=== PATIENT | male | born 1975 | race Caucasian/White ===

== ENCOUNTER 2018-01-10 09:25 | Day surgery (SDC) | payer SELFPAY ==
[~2018-01-10] VITALS: Ht 175.3 cm; Wt 87.0 kg
[2018-01-10 09:29] VITALS: BP 122/75; PULSE 80; RESP 15; TEMP 99; O2SAT 96
--- NOTE | 2018-01-10 10:32 | PD ---
HPI Chief Complaint: Foreign Body Time Seen by Provider: 09:30 Travel History International Travel<30 days: No Contact w/Intl Traveler<30days: No Traveled to known affect area: No History of Present Illness HPI 42-year-old male sent here from [place] emergency department for GI evaluation for esophageal impaction. Patient reports history of reflux. States he ate 1 bite of steak at around 7:00 PM yesterday evening, and since that time he has been unable to swallow or tolerate his secretions. He was evaluated by the emergency department at [place] and was provided glucagon without improvement in symptoms. Gastroenterology was consulted, and the patient was transported here for upper endoscopy. He denies chest pain or dyspnea. No abdominal pain. PFSH Past Medical History Diminished Hearing: No GERD: Yes Immunizations Current: Yes Past Surgical History Surgical History: No Previous Surgery Social History Alcohol Use: Yes (socially) Tobacco Use: No Substance Use: No Allergies-Medications (Allergen,Severity, Reaction): Coded Allergies: codeine (Verified Allergy, Unknown, 01/10/18) Reported Meds & Prescriptions Reported Meds & Active Scripts Active No Active Prescriptions or Reported Medications Review of Systems Except as stated in HPI: all other systems reviewed are Neg Physical Exam Narrative GENERAL: Well-developed, well-nourished, no apparent distress, spitting secretions into an emesis bag. SKIN: Focused skin assessment warm/dry. HEAD: Atraumatic. Normocephalic. EYES: Pupils equal and round. No scleral icterus. No injection or drainage. ENT: Mucous membranes pink and moist. NECK: Trachea midline. No JVD. CARDIOVASCULAR: Regular rate and rhythm. No murmur appreciated. RESPIRATORY: No accessory muscle use. Clear to auscultation. Breath sounds equal bilaterally. GASTROINTESTINAL: Abdomen soft, non-tender, nondistended. MUSCULOSKELETAL: No obvious deformities. No clubbing. No cyanosis. No edema. NEUROLOGICAL: Awake and alert. No obvious cranial nerve deficits. Motor grossly within normal limits. Normal speech. PSYCHIATRIC: Appropriate mood and affect; insight and judgment normal. Data Data Last Documented VS Vital Signs Date Time Temp Pulse Resp B/P (MAP) Pulse Ox O2 Delivery O2 Flow Rate FiO2 01/10/18 09:30 15 01/10/18 09:29 99.0 80 122/75 (91) 96 MDM Medical Decision Making Medical Screen Exam Complete: Yes Emergency Medical Condition: Yes Differential Diagnosis Esophageal foreign body, stricture, mass Narrative Course 11:10 AM: Case discussed with on-call tennis camp instructor Dr. Garcia who plans for upper endoscopy today. Diagnosis Primary Impression: Esophageal foreign body Qualified Codes: T18.108A - Unspecified foreign body in esophagus causing other injury, initial encounter Scripts No Active Prescriptions or Reported Meds Dagoberto Mederos MD Jan 10, 2018 10:32
[2018-01-10] MEDS ORDERED: LIDOCAINE HCL 1% PF 5 ML SYRINGE OTHER ONE (12:00)
[2018-01-10] MEDS ORDERED: PROPOFOL 200 MG/20 ML AMP IV ONE (12:00)
[2018-01-10] MEDS ORDERED: SUCCINYLCHOLINE CHLORIDE 200 MG/10 ML VIAL IV ONE (12:00)
--- NOTE | 2018-01-10 13:01 | PD.CONS ---
HPI History of Present Illness This is a 42 year old male who presents to the [facility] emergency room with complaints of food bolus impaction the patient reports prior episodes that he was able to spontaneously disimpact he also reports a long-standing history of heartburn reflux for which he took [id number] Nexium for a few weeks at a time otherwise he's a good health and has no other complaints PFSH Past Medical History Reflux Past Surgical History None Coded Allergies: codeine (Verified Allergy, Unknown, 01/10/18) Medications Occasional Nexium Family History Noncontributory Social History Social alcohol but no tobacco Review of Systems Review of systems Patient denies any headache dizziness blurry vision, denies any chest pain shortness of breath cough fever chills, Denies any palpitations or fatigue denies any polyuria dysuria hematuria, denies any numbness tingling or weakness, denies any skin rash pruritus or jaundice, denies any easy bruising or bleeding tendency, denies any recent change in mood GI Exam Vitals I&O Vital Signs Date Time Temp Pulse Resp B/P (MAP) Pulse Ox O2 Delivery O2 Flow Rate FiO2 01/10/18 09:30 15 01/10/18 09:29 99.0 80 15 122/75 (91) 96 Physical Examination HEENT: Pupils round and reactive to light; normocephalic; atraumatic; no jaundice. Throat is clear. NECK: Neck is supple, no JVD, no lymphadenopathy. CHEST: Chest is clear to auscultation and percussion. CARDIAC: Regular rate and rhythm with no murmur gallop or rubs. ABDOMEN: Soft, nondistended, nontender; no hepatosplenomegaly; bowel sounds are present in all four quadrants. EXTREMITIES: No clubbing, cyanosis, or edema. SKIN: Normal; no rash; no jaundice. FISCAL ASSISTANT: No focal deficits; alert and oriented times three. Assessment and Plan Plan Food bolus impaction History of esophageal reflux We will proceed with an upper endoscopy Further recommendations shall depend on the findings Obed Garcia MD Jan 10, 2018 13:01
--- NOTE | 2018-01-10 13:15 | PD.PROCEDR ---
GI Procedure PROCEDURE PERFORMED EGD with foreign body removal and biopsy INDICATION FOR PROCEDURE Foreign body in the esophagus PROCEDURE: The procedure, risks and benefits were discussed with Mr. Norton and informed consent was obtained. Anesthesia sedated him with Diprivan. He was placed in the left lateral decubitus position. EGD: The Pentax videoscope was introduced through the oropharynx and advanced to the second portion of the duodenum under direct visualization. Retroflexion was performed in the stomach. FINDINGS: The esophagus there was a piece of meat stuck in the distal esophagus this was removed using a Lim net post removal noted that there is some erythema at the lower end of the esophagus with 2 superficial ulcerations this area was biopsied the rest of the esophagus was unremarkable The stomach this too appeared to be unremarkable and within normal limits The duodenum was also normal ESTIMATED BLOOD LOSS: None SPECIMENS REMOVED: Esophageal biopsy COMPLICATIONS: None IMPRESSION: Foreign body removal from the esophagus Esophagitis distal esophagus Esophageal ulcer distal esophagus PLAN: Await biopsy Chew food well Pantoprazole 40 mg daily Follow-up in clinic in 3 weeks Repeat EGD with possible dilation in 2 months Obed Garcia MD Jan 10, 2018 13:15
[2018-01-10] MEDS ORDERED: DO NOT ADM ANY ANTICOAGULANT DRUGS PRN (13:30)
[2018-01-10 14:25] VITALS: BP 129/82; PULSE 79; RESP 18; TEMP 98.5; O2SAT 96
== END 2018-01-10 14:33 | disposition home or self-care (01) ==
LOC: NEPE 09:25 → HOR 14:33
PROVIDERS: ATTEND Internal Medicine Gastroenterology
DX: T18.128A Food in esophagus causing other injury, initial encounter (principal); K22.10 Ulcer of esophagus without bleeding; D72.1 Eosinophilia; K21.9 Gastro-esophageal reflux disease without esophagitis; T18.108A Unspecified foreign body in esophagus causing other injury, initial encounter; X58.XXXA Exposure to other specified factors, initial encounter; Z88.5 Allergy status to narcotic agent
CPT/HCPCS: 00731; 43239; 43247; 88305; 96372; 96374; 99282; J0330; J1610; J2060; J2765; J7030